=== PATIENT | female | born 1985 | race American Indian/Alaskan Native ===

== ENCOUNTER 2019-07-21 03:04 | Emergency (ER) | payer SELFPAY ==
[2019-07-21] MEDS ORDERED: IBUPROFEN 600 MG TAB PO ONE (03:20)
[2019-07-21] MEDS ORDERED: dexAMETHasone 20 MG/5 ML VIAL IV ONE (03:40)
[2019-07-21] MEDS ORDERED: ALBUTEROL 2.5 MG/3 ML NEBU IH ONE (03:40)
[2019-07-21] MEDS ORDERED: cefTRIAXone/NS 1 GM/50 ML 1 GM/50 ML BAG IV ONE (03:44)
[2019-07-21] MEDS ORDERED: SODIUM CHLORIDE 0.9% 1000 ML IV SOLN IV ONE (03:44)
[2019-07-21 04:15] LABS: Hematocrit 38.6 % (30.3-42.9); Hemoglobin 12.6 gm/dl (10.1-14.3); Mean Corpuscular HGB Conc 33 % (30-34); Mean Corpuscular Volume 83 fl (79-97); Platelet Count 278 K/mm3 (140-440); Red Blood Count 4.64 M/mm3 (3.65-5.03); Red Cell Distribution Width 13.2 % (13.2-15.2)
--- NOTE | 2019-07-21 04:26 | Emergency Department Report ---
<RAJNI BENJAMIN - Last Filed: 07/21/19 07:15> ED General Adult HPI - General Chief complaint: Upper Respiratory Infection Stated complaint: FEVR BODY PAIN COUGH SORE THROAT Time Seen by Provider: 07/21/19 03:38 Source: patient Mode of arrival: Ambulatory Limitations: No Limitations - History of Present Illness Initial comments: Ms. Beckham is s 33 y/o aaf who presents for fever, sore throat cough wheezing x 1 week. States 8/10 pain with swallowing, noc wheezing. pt denies hx of asthma however daughter had flu last week. Symptoms are exacerbated by activity and swallowing. Symptoms are relieved by nothing. Tmax is 103. f oral. at home. Onset/Timin -: week(s) Quality: burning, sharp Consistency: constant Improves with: none Worsens with: movement, other (swallowing ) Associated Symptoms: cough, fever/chills, malaise Treatments Prior to Arrival: none - Related Data Previous Rx's Medication Instructions Recorded Last Taken Type ALBUTEROL Inhaler (OR & NICU) 2 puff IH QID PRN #8.5 gram 07/21/19 Unknown Rx [ProAir HFA Inhaler] Benzocaine/Menthol [Cepacol Sore 1 each MM Q2H #24 lozenge 07/21/19 Unknown Rx Throat Lozenge] Fluticasone [Flonase] 1 spray NS QDAY #1 bottle 07/21/19 Unknown Rx Ibuprofen [Motrin 800 MG tab] 800 mg PO Q8HR PRN #30 tablet 07/21/19 Unknown Rx levoFLOXacin [Levaquin] 750 mg PO QDAY #14 tablet 07/21/19 Unknown Rx predniSONE [Deltasone] 20 mg PO DAILY #5 tablet 07/21/19 Unknown Rx Allergies Allergy/AdvReac Type Severity Reaction Status Date / Time No Known Allergies Allergy Verified 07/21/19 04:04 ED Review of Systems Constitutional: chills, fever, malaise Eyes: denies: eye pain, eye discharge, vision change ENT: ear pain, throat pain, congestion Respiratory: cough, wheezing. denies: shortness of breath Cardiovascular: denies: chest pain, palpitations Endocrine: no symptoms reported Gastrointestinal: nausea. denies: abdominal pain, vomiting, diarrhea Genitourinary: denies: urgency, dysuria, discharge Musculoskeletal: denies: back pain, joint swelling, arthralgia Skin: denies: rash, lesions Neurological: headache, vertigo. denies: weakness, numbness, paresthesias, co nfusion Psychiatric: denies: anxiety, depression Hematological/Lymphatic: denies: easy bleeding, easy bruising ED Past Medical Hx - Past Medical History Previous Medical History?: No - Surgical History Past Surgical History?: Yes Additional Surgical History: c-sec - Social History Smoking Status: Never Smoker Substance Use Type: None - Medications Home Medications: Home Medications Medication Instructions Recorded Confirmed Last Taken Type ALBUTEROL Inhaler (OR & NICU) 2 puff IH QID PRN #8.5 gram 07/21/19 Unknown Rx [ProAir HFA Inhaler] Benzocaine/Menthol [Cepacol Sore 1 each MM Q2H #24 lozenge 07/21/19 Unknown Rx Throat Lozenge] Fluticasone [Flonase] 1 spray NS QDAY #1 bottle 07/21/19 Unknown Rx Ibuprofen [Motrin 800 MG tab] 800 mg PO Q8HR PRN #30 tablet 07/21/19 Unknown Rx levoFLOXacin [Levaquin] 750 mg PO QDAY #14 tablet 07/21/19 Unknown Rx predniSONE [Deltasone] 20 mg PO DAILY #5 tablet 07/21/19 Unknown Rx ED Physical Exam - General Limitations: No Limitations General appearance: alert, in no apparent distress - Head Head exam: Present: atraumatic, normocephalic - Eye Eye exam: Present: normal appearance, PERRL, EOMI. Absent: conjunctival injection, nystagmus Pupils: Present: normal accommodation - ENT ENT exam: Present: mucous membranes moist - Expanded ENT Exam Expanded Ear exam: Present: normal external inspection TM/Canal exam: Erythema: Right TM, Left TM Mouth exam: Absent: trismus Throat exam: Positive: tonsillar erythema, tonsillomegaly, tonsillar exudate, other (uvula midline mild swelling no stridor ). Negative: R peritonsillar mass, L peritonsillar mass - Neck Neck exam: Present: tenderness, full ROM, lymphadenopathy. Absent: meningismus, thyromegaly - Respiratory Respiratory exam: Present: normal lung sounds bilaterally, wheezes, chest wall tenderness (right anterior lateral chest wall ). Absent: respiratory distress, rales, rhonchi, stridor - Cardiovascular Cardiovascular Exam: Present: regular rate, normal rhythm, normal heart sounds. Absent: systolic murmur, diastolic murmur, rubs, gallop - GI/Abdominal GI/Abdominal exam: Present: soft, normal bowel sounds. Absent: distended, tenderness, bruit, hernia - Rectal Rectal exam: Present: deferred - Extremities Exam Extremities exam: Present: normal inspection, full ROM, normal capillary refill. Absent: tenderness - Back Exam Back exam: Present: normal inspection, full ROM. Absent: tenderness, CVA tenderness (R), vertebral tenderness, rash noted - Neurological Exam Neurological exam: Present: alert, oriented X3, CN II-XII intact - Psychiatric Psychiatric exam: Present: normal affect, normal mood - Skin Skin exam: Present: warm, dry, intact, normal color. Absent: rash ED Course - Reevaluation(s) Reevaluation #1: symptoms improved, wheezing improved, hr: 102 bpm, O2 sat 98 % room air, pt denies pain at this, initial fluid bolus 20cc/kg infusing at this time, roceph 1gm ivpb, lactic acid, and blood cultures pending, Wells PE low probability, however concern for peritonsilar abscess will CT soft tissue neck. pt is resting quitely with nad at this time. 07/21/19 0430 Reevaluation #2: cxr: right upper lobe pneumonia, pt is resting quitely with nad , ct neck pending, plan: continue ivfs, fever and pain control, dispo after ct neck r/o peritonsilar abscess, discussed possibility of admission with patient, she advise she will need to arrange child support officer. will dicuss after ct result, pt is restiing quitely at this time will continue to monitor pt status. 07/21/19 05:53 ED Medical Decision Making - Lab Data Result diagrams: 07/21/19 04:03 07/21/19 04:03 Labs 07/21/19 07/21/19 07/21/19 04:03 04:03 05:11 WBC 21.2 H RBC 4.64 Hgb 12.6 Hct 38.6 MCV 83 MCH 27 L MCHC 33 RDW 13.2 Plt Count 278 Sodium 133 L Potassium 5.4 H Chloride 96.8 L Carbon Dioxide 20 L Anion Gap 22 BUN 7 Creatinine 0.6 L Estimated GFR > 60 BUN/Creatinine Ratio 12 Glucose 108 H Lactic Acid 1.60 Calcium 9.3 Influenza A (Rapid) Influenza B (Rapid) Group A Strep Rapid 07/21/19 Unknown WBC RBC Hgb Hct MCV MCH MCHC RDW Plt Count Sodium Potassium Chloride Carbon Dioxide Anion Gap BUN Creatinine Estimated GFR BUN/Creatinine Ratio Glucose Lactic Acid Calcium Influenza A (Rapid) Negative Influenza B (Rapid) Negative Group A Strep Rapid Negative - Radiology Data Radiology results: report reviewed, image reviewed Findings [address] [address] XRay Report Signed Patient: JENNI BECKHAM MR#: [id number] : 1985 Acct:[id number] Age/Sex: 33 / F ADM Date: 07/21/19 Loc: ED Attending Dr: Ordering Physician: RAJNI BENJAMIN NP Date of Service: 07/21/19 Procedure(s): XR chest routine 2V Accession Number(s): [id number] cc: RAJNI BENJAMIN NP Fluoro Time In Minutes: CHEST 2 VIEWS, 07/21/2019 4:54 AM INDICATION: Cough. Fever. COMPARISON: None FINDINGS: Support devices: None Heart: The heart is normal in size. Lungs/pleura: There is faint bilateral interstitial prominence with focal airspace opacity within the right upper lobe. No large pleural effusion is identified. Additional findings: Evaluation of bony structures demonstrates no evidence of acute bony abnormality. IMPRESSION: 1. Right upper lobe opacity concerning for pneumonia. 2. Bilateral interstitial prominence. Signer Name: Yumiko Kelsey MD Signed: 07/21/2019 4:58 AM Workstation Name: [id number] Transcribed By: EB Dictated By: Yumiko Kelsey MD Electronically Authenticated By: Yumiko Kelsey MD Signed Date/Time: 07/21/19 0458 DD/ 045 TD/TT: Findings [address] [address] Cat Scan Report Signed Patient: JENNI BECKHAM MR#: [id number] : 1985 Acct:[id number] Age/Sex: 33 / F ADM Date: 07/21/19 Loc: ED Attending Dr: Ordering Physician: RAJNI BENJAMIN NP Date of Service: 07/21/19 Procedure(s): CT neck w con Accession Number(s): [id number] cc: RAJNI BENJAMIN NP CT NECK WITH CONTRAST HISTORY: Peritonsillar abscess COMPARISON: None. TECHNIQUE: Routine CT of the neck is performed following intravenous contrast. All CT scans at this location are performed using CT dose reduction for ALARA by means of automated exposure control. CONTRAST: 100 mL Omnipaque 300 FINDINGS: Both faucial tonsils are enlarged. No evidence of tonsillar/peritonsillar abscess is seen. Skull Base: No significant abnormality. Parotid, Carotid, Retropharyngeal, Prevertebral, Pharyngeal Mucosal, and Pick Up Man Spaces: No abnormal mass, enhancing lesion or other significant abnormality. Airway: Patent and without significant abnormality. Lymphatics: Reactive lymph nodes in the internal jugular chain Vasculature: Left internal jugular vein is abnormal. Below the C2 level, large areas are not opacified. Does not appear to be due to unopacified blood. I am concerned about thrombosed left internal jugular vein. Please obtain ultrasound for confirmation. Carotid arteries and right internal jugular vein are normal. Osseous Structures: No significant abnormality Visualized portions of the lungs: Opacity in the right upper lung field Additional findings: None. IMPRESSION: Do not see peritonsillar abscess Filling defect in the left internal jugular vein; this does not appear to be due to unopacified blood; I am concerned about thromboses; please obtain ultrasound for confirmation Signer Name: Nick Neville MD Signed: 07/21/2019 6:53 AM Workstation Name: [id number] Transcribed By: BS Dictated By: Nick Mckeon MD Electronically Authenticated By: Nick Mckeon MD Signed Date/Time: 07/21/1953 DD/ TD/TT: - Medical Decision Making cxr: RUL Pneumonia , ct: soft tissue neck no peritonsilar abscess, ? left IJ thrombus. radiology recommendation: US neck r/o LIJ Thrombus. case signed out to college who will dispo patient appropriately after US Neck : if negative will dc to home with abx for cap, if thrombus will consult vascular. pt care signed out to oncoming STAFFING MGR CP-C. ED Disposition Clinical Impression: Pneumonia Disposition: DC-01 TO HOME OR SELFCARE Condition: Stable Instructions: Bacterial Pneumonia (ED), Pneumonia (ED) Prescriptions: Benzocaine/Menthol [Cepacol Sore Throat Lozenge] 1 each MM Q2H #24 lozenge predniSONE [Deltasone] 20 mg PO DAILY #5 tablet Fluticasone [Flonase] 1 spray NS QDAY #1 bottle levoFLOXacin [Levaquin] 750 mg PO QDAY #14 tablet Ibuprofen [Motrin 800 MG tab] 800 mg PO Q8HR PRN #30 tablet PRN Reason: pain fever ALBUTEROL Inhaler (OR & NICU) [ProAir HFA Inhaler] 2 puff IH QID PRN #8.5 gram PRN Reason: Shortness Of Breath Referrals: LOUIS GUERRA MD [Staff Physician] - 3-5 Days <DARIELA ESPARZA - Last Filed: 07/21/19 09:36> ED Review of Systems ROS: Stated complaint: FEVR BODY PAIN COUGH SORE THROAT Other details as noted in HPI ED Past Medical Hx - Family History Family history: no significant ED Course Vital Signs 07/21/19 07/21/19 03:17 07:25 Temperature 102.8 F H 98.9 F Pulse Rate 132 H 104 H Respiratory 20 18 Rate Blood Pressure 123/78 O2 Sat by Pulse 97 Oximetry - Reevaluation(s) Reevaluation #3: 07/21/19 0800 no complaints Reevaluation #4: 07/21/19 09:00\ returned from ultrasound no complaints ED Medical Decision Making - Lab Data Result diagrams: 07/21/19 04:03 07/21/19 04:03 - Medical Decision Making labs noted CT noted xray noted us noted VSS ambulatory taking po Labs 07/21/19 07/21/19 07/21/19 04:03 04:03 05:11 WBC 21.2 H RBC 4.64 Hgb 12.6 Hct 38.6 MCV 83 MCH 27 L MCHC 33 RDW 13.2 Plt Count 278 PT INR APTT Sodium 133 L Potassium 5.4 H Chloride 96.8 L Carbon Dioxide 20 L Anion Gap 22 BUN 7 Creatinine 0.6 L Estimated GFR > 60 BUN/Creatinine Ratio 12 Glucose 108 H Lactic Acid 1.60 Calcium 9.3 Influenza A (Rapid) Influenza B (Rapid) Group A Strep Rapid 07/21/19 07/21/19 07:19 Unknown WBC RBC Hgb Hct MCV MCH MCHC RDW Plt Count PT 13.9 INR 1.08 APTT 32.3 Sodium Potassium Chloride Carbon Dioxide Anion Gap BUN Creatinine Estimated GFR BUN/Creatinine Ratio Glucose Lactic Acid Calcium Influenza A (Rapid) Negative Influenza B (Rapid) Negative Group A Strep Rapid Negative Vital Signs 07/21/19 07/21/19 03:17 07:25 Temperature 102.8 F H 98.9 F Pulse Rate 132 H 104 H Respiratory 20 18 Rate Blood Pressure 123/78 O2 Sat by Pulse 97 Oximetry 0930 pt updated on plan of care dc home with rx follow up with pcp on Friday for recheck - Differential Diagnosis ro pna/ij thrombus/peritonsillar abscess Critical care attestation.: If time is entered above; I have spent that time in minutes in the direct care of this critically ill patient, excluding procedure time. ED Disposition Is pt being admited?: No Does the pt Need Aspirin: No Time of Disposition: 09:28
[2019-07-21 04:32] LABS: BUN/Creatinine Ratio 12; Blood Urea Nitrogen 7 mg/dL (7-17); Calcium 9.3 mg/dL (8.4-10.2); Hemolysis Index 344
--- NOTE | 2019-07-21 05:02 | XRay Report ---
CHEST 2 VIEWS, 07/21/2019 4:54 AM INDICATION: Cough. Fever. COMPARISON: None FINDINGS: Support devices: None Heart: The heart is normal in size. Lungs/pleura: There is faint bilateral interstitial prominence with focal airspace opacity within the right upper lobe. No large pleural effusion is identified. Additional findings: Evaluation of bony structures demonstrates no evidence of acute bony abnormality . IMPRESSION: 1. Right upper lobe opacity concerning for pneumonia. 2. Bilateral interstitial prominence. Signer Name: Yumiko Kelsey MD Signed: 07/21/2019 4:58 AM Workstation Name: [id number]
--- NOTE | 2019-07-21 06:57 | Cat Scan Report ---
CT NECK WITH CONTRAST HISTORY: Peritonsillar abscess COMPARISON: None. TECHNIQUE: Routine CT of the neck is performed following intravenous contrast. All CT scans at this [facility] are performed using CT dose reduction for ALARA by means of automated exposure control. CONTRAST: 100 mL Omnipaque 300 FINDINGS: Both faucial tonsils are enlarged. No evidence of tonsillar/peritonsillar abscess is seen. Skull Base: No significant abnormality. Parotid, Carotid, Retropharyngeal, Prevertebral, Pharyngeal Mucosal, and Clinical Registered Nurse Spaces: No abnorm al mass, enhancing lesion or other significant abnormality. Airway: Patent and without significant abnormality. Lymphatics: Reactive lymph nodes in the internal jugular chain Vasculature: Left internal jugular vein is abnormal. Below the C2 level, large areas are not opacifie d. Does not appear to be due to unopacified blood. I am concerned about thrombosed left internal jugu lar vein. Please obtain ultrasound for confirmation. Carotid arteries and right internal jugular vei n are normal. Osseous Structures: No significant abnormality Visualized portions of the lungs: Opacity in the right upper lung field Additional findings: None. IMPRESSION: Do not see peritonsillar abscess Filling defect in the left internal jugular vein; this does not appear to be due to unopacified blood ; I am concerned about thromboses; please obtain ultrasound for confirmation Signer Name: Nick Neville MD Signed: 07/21/2019 6:53 AM Workstation Name: [id number]
[2019-07-21 07:45] LABS: INR 1.08 (0.87-1.13)
[2019-07-21 07:50] LABS: Partial Thromboplastin Time 32.3 Sec. (24.2-36.6)
--- NOTE | 2019-07-21 08:59 | Vascular Lab Report ---
LEFT UPPER EXTREMITY VENOUS DOPPLER ULTRASOUND HISTORY: Rule out left internal jugular jugular vein thrombus COMPARISON: None. TECHNIQUE: Grayscale, color and spectral Doppler imaging of the venous system of the left upper extre mity was performed. FINDINGS: Internal Jugular Vein: Normal grayscale appearance and flow. Subclavian Vein: Normal grayscale appearance and flow. Axillary Vein: Normal venous flow, compressibility and augmentation. Brachial vein: Normal venous flow, compressibility and augmentation. Radial vein: Normal venous flow, compressibility and augmentation. Ulnar vein: Normal venous flow, compressibility and augmentation. Additional Findings: None. IMPRESSION: 1. No sonographic evidence of deep venous thrombosis in the left upper extremity. Signer Name: Viral Ahn Jr, MD Signed: 07/21/2019 8:54 AM Workstation Name: [id number]
[2019-07-21 09:52] VITALS: BP 110/80
== END 2019-07-21 09:52 | disposition home or self-care (01) ==
LOC: ED 03:04
DX: J18.9 Pneumonia, unspecified organism (principal)
CPT/HCPCS: 36415; 70491; 71046; 80048; 82140; 85027; 85610; 85730; 87040; 87116; 87400; 87430; 93971; 96365; 96366; 96375; 99285; J0696; J1100; J7030; Q9967